=== PATIENT | male | born 1965 | race Caucasian/White ===

== ENCOUNTER 2016-09-15 11:17 | Emergency (ER) | payer MEDICAID ==
[~2016-09-15] VITALS: Ht 175.3 cm; Wt 74.4 kg
[2016-09-15 11:18] VITALS: BP 138/87
== END 2016-09-15 12:56 | disposition home or self-care (01) ==
LOC: ED 11:35
DX: K64.8 Other hemorrhoids (principal); Z88.0 Allergy status to penicillin
CPT/HCPCS: 99283